=== PATIENT | female | born 1960 | race Caucasian/White ===

== ENCOUNTER 2019-05-11 20:52 | Emergency (ER) | payer SELFPAY ==
[2019-05-11 21:00] VITALS: BP 106/53; PULSE 70; RESP 18; TEMP 36.4; O2SAT 99; BMI 24.3
--- NOTE | 2019-05-11 21:00 | XR_ITS ---
WS: [id number] Left forearm, 2 views, 05/11/2019 Clinical Data: INJURY Comparison: None. Findings: There are impacted fractures of the distal left radius and ulna with dorsal displacement. There is a n ulnar styloid fracture. Carpal bones are intact. The shafts of the radius and ulna are unremarkable . The left elbow is normal. There is soft tissue swelling about the distal fracture site. XR/XR forearm LT 2V [id number] Impression: 1. Comminuted impacted fracture of distal left radius. 2. Fracture of the distal left ulna and ulnar styloid.
--- NOTE | 2019-05-11 21:00 | XR_ITS ---
WS: [id number] Left hand, 3 views, 05/11/2019 Clinical Data: INJURY Comparison: None. Findings: The fractures of the distal left radius and ulna are visible. The carpal bones are intact. The metaca rpals and phalanges show no fractures. The joint spaces are normal. No bone destruction or erosion is seen of the bones of the left hand. XR/XR hand LT min 3V* [id number] Impression: 1. Negative left hand. 2. Fractures of the distal left radius and ulna.
--- NOTE | 2019-05-11 21:00 | XR_ITS ---
WS: [id number] Left wrist, 3 views, 05/11/2019 Clinical Data: INJURY Comparison: None. Findings: There is a comminuted impacted fracture of the distal left radius. There is a fracture of the distal left ulna and of the ulnar styloid. The carpal bones are intact. There is soft tissue swelling about the fracture site with dorsal displacement of the fractures. XR/XR wrist LT min 3V* [id number] Impression: Fractures of the distal left radius and ulna.
[2019-05-11 21:45] VITALS: BP 93/62; PULSE 74; RESP 16; TEMP 36.8; O2SAT 99
--- NOTE | 2019-05-11 21:51 | ED_ITS ---
HPI - Extremity Problem General: Chief complaint: Extremity Injury, Upper Stated complaint: FALL, RT WRIST INJURY Time Seen by Provider: 05/11/19 21:46 Source: patient Mode of arrival: ambulatory Limitations: no limitations History of Present Illness: HPI Narrative: Patient was reaching up to check the light bulbs on some [place] lights she had hanging up in her living room. Patient reports slipping and falling off the stepstool and landing catching herself with her left outstretched arm. Patient has complaints of pain to the left wrist. Patient has normal range of motion of the elbow. Pulses and distal neurovascular is normal. Patient has a dinner fork deformity noted. Patient appears in mild pain. Review of Systems General: Reports: 10 or more systems reviewed and unremarkable except in HPI and below Musc: Reports: joint pain PFSH ED PFSH: Statuses (acute, chronic, etc) shown below reflect problem list status a s previously entered and may not be historically accurate Social History Smoking and tobacco status: current every day smoker Physical Exam Const: COMMON NORMALS: no apparent distress and oriented x3 GENERAL A PPEARANCE: cooperative HENMT: COMMON NORMALS: normocephalic, external ears normal, EAC's normal, TM's normal bilaterally and external nose normal HEAD & SCALP: normal to inspection and normocephalic FACE & SINUS: normal facial exam NOSE: external nose normal GENERAL EAR: hearing not grossly impaired EXTERNAL EAR: Yes external ears normal EXTERNAL AUDITORY CANAL: EAC's normal TYMPANIC MEMBRANE: TM's normal bilaterally MOUTH: oral and palatal mucosa normal THROAT: posterior oropharynx normal Eye: COMMON NORMALS: PERRL and EOMs intact bilaterally PUPIL: Yes PERRL Neck/C-Spine: COMMON NORMALS: full ROM and no lymphadenopathy Lymph: LYMPHATIC: no lymphedema noted Chest: COMMONS NORMALS: inspection of chest normal and palpation of chest normal Resp: COMMON NORMALS: normal respiratory effort and clear to auscultation bilaterally AUSCULTATION: clear to auscultation bilaterally Cardio: COMMON NORMALS: regular rate and regular rhythm RATE: regular rate RHYTHM: regular rhythm GI: COMMON NORMALS: normal to inspection, nondistended, normoactive bowel sounds and non-tender : COMMON NORMALS: Yes no CVA tenderness BLADDER/KIDNEY EXAM: Yes no CVA tenderness Back/Pelvis: COMMON NORMALS: no CVA tenderness and thoracic and lumbar spine normal to inspection Extremity: NARRATIVE EXTREMITY EXAM: Dinner fork deformity to the left wrist. Distal pulses and neurovascular is normal. GENERAL: Yes edema Neuro: COMMON NORMALS: oriented x3, moves all extremities and no focal motor deficits Psych: COMMON NORMALS: mental status grossly normal and cooperative Skin: COMMON NORMALS: no rashes or lesions noted GENERAL SKIN EXAM: no rashes or lesions noted Course ED course: 2199, reviewed with Dr. Aleman who agreed to splint and follow-up recommended discussion with Dr. Rodriguez to see if he would reduce, Dr. Rodriguez recommended we discuss with patient if she would want it reduce at this time. Patient was splinted before I could ask, reported improvement in pain and wanted to wait to see orthopedist. wjw Vital Signs: Vital signs: Vital Signs Temperature 98.3 F 05/11/19 22:18 Pulse Rate 68 05/11/19 22:18 Respiratory Rate 16 05/11/19 22:18 Blood Pressure 103/67 05/11/19 22:18 Pulse Oximetry 99 05/11/19 22:18 MDM - Extremity (Nontraumatic) MDM Narrative: Medical decision making narrative: Patient comes in with injury to the left wrist. On exam patient had a dinner fork abnormality to the left wrist. Neurovascular exam was normal. Differential diagnosis includes sprain, dislocation, fracture. X-ray noted a distal ulnar radial fracture with some mild dorsal angulation. Patient was placed in a splint with recommendations to follow-up with orthopedics. Patient reports understanding and will follow-up in the morning with orthopedics. Case management was requested for assistance with follow-up appointment. Discharge Plan Discharge Patient Disposition: Home, Self-Care Clinical Impression: Fracture of ulna with radius, closed Qualifiers: Encounter type: initial encounter Laterality: left Qualified Code(s): S52.92XA - Unspecified fracture of left forearm, initial encounter for closed fracture Condition: Stable Prescriptions: New hydrocodone-acetaminophen 5-325 mg tablet 1 tab PO Q6H PRN (Reason: pain) Qty: 14 RF: 0 Discharge Orders: Discharge Order (Routine); Ordered 05/11/19 Ordered By: Reggie Rivas Referrals: Todd Martinez, [Family Provider] - Discharge Diet: Advance as tolerated Discharge Activity: Increase activity as tolerated Patient Instructions: Wrist Fracture in Adults (ED) Activity Restrictions/Additional Instructions: Contact orthopedics office in morning for further treatment Case management will call you if you need further assistance Acetaminophen and ibuprofen may be used to help control pain Use hydrocodone for breakthrough pain Return to ER for worsening pain or new concerns Discharge Date/Time: 05/11/19 22:19 Coding Level of Care Code ED Executive Marketing Assistant for Grecia Mars Exam Problem Focused
[2019-05-11] MEDS: HYDROcodone-acetaminophen 7.5-325 mg Tablet 1 TAB PO (22:02)
[2019-05-11 22:18] VITALS: BP 103/67; PULSE 68; RESP 16; TEMP 36.8; O2SAT 99
--- NOTE | 2019-05-12 13:55 | DCPLANNER ---
manager digital had message to schedule a follow up appointment for patient with ortho. manager digital called ortho, spoke with Aleyda, gave clinic patients information. manager digital was told that a follow up appointment was scheduled for 05.12.19, and patient did attend the appointment.
== END 2019-05-11 22:19 | disposition home or self-care (01) ==
PROVIDERS: Emergency Provider Nurse Practitioner Family; Family Provider Electrodiagnostic Medicine
DX: S52.612A Displaced fracture of left ulna styloid process, initial encounter for closed fracture (principal); S52.592A Other fractures of lower end of left radius, initial encounter for closed fracture; W11.XXXA Fall on and from ladder, initial encounter; Y92.009 Unspecified place in unspecified non-institutional (private) residence as the place of occurrence of the external cause; F17.210 Nicotine dependence, cigarettes, uncomplicated
CPT/HCPCS: 73090; 73110; 73130; 99281

== ENCOUNTER 2019-05-12 11:31 | Day surgery (SDC) | payer SELFPAY ==
--- NOTE | 2019-05-12 | XR_ITS ---
WS: [id number] INTRAOPERATIVE TECHNIQUE: 3 Spot fluoroscopic images for intraoperative purposes. FLUOROSCOPY TIME: 144.3 seconds CLINICAL INFORMATION: OR PICS COMPARISON: None. FINDINGS: Plate and screw fixation distal radius. Comminuted distal ulna fracture with ulna styloid avulsion. XR/XR forearm LT 2V [id number] IMPRESSION: Images obtained for intraoperative purposes.
--- NOTE | 2019-05-12 | SCC_ITS ---
Procedure Done: Open reduction internal fixation left distal radius comminuted displaced fracture utilizing the [place] narrow extra short plate 144.3 seconds of fluoroscopic guidance, for a cumulative dose of 2.41 mGy, was provided to Dr. Aleman by the radiology department. C-arm images of the LEFT forearm were saved for the patient's permanent record. [facility]
[2019-05-12 12:15] VITALS: BMI 23.5
[2019-05-12 12:42] VITALS: BP 142/87; PULSE 95; RESP 18; TEMP 37.4; O2SAT 100
[2019-05-12] MEDS: midazolam 1 mg/mL INJ 2 mL 2 MG (13:15)
--- NOTE | 2019-05-12 13:44 | ANES.PREANES ---
Pre-Anesthetic Assessment Pre-Anesthetic Assessment: Height/Weight: Height 1.7 m Weight 68.039 kg Temp Pulse Resp BP Pulse Ox 99.3 F 95 18 142/87 100 05/12/19 12:42 05/12/19 12:42 05/12/19 12:42 05/12/19 12:42 05/12/19 12:42 Preop Diagnosis: Left comminuted intra-articular distal radius fracture Proposed Procedure: Operation Date: 05/12/19 12:20 Proposed Procedures p ORIF Wrist(Left) - Annelise Aleman MD Familial anesthetic complications: None Last intake: Intake > NPO Last Liquid Date 05/12/19 Last Liquid Time 07:00 Last Solid Date 05/10/19 Social: Social History: No alcohol and No tobacco Exam: Pre-Anes Outpt Exam: alert, oriented x 3, clear to auscultation bilaterally and regular rate & rhythm Airway: Cervical ROM: WNL MP: 2 Dentition: Full Pulmonary: Pulmonary: None reported CV/HEM: CV/HEM: None reported : : None reported Hepatic: Hepatic: None reported GI: GI: None reported Metabolic: Metabolic: None reported Musc/skel: Musc/skel: None reported Neuropsych: Neuropsych: None reported Anesthetic Plan: ASA status: II Anesthesia: General and Regional (specify below) (Axillary nerve block) PFSH Anesthesia PFSH: Social History Smoking and tobacco status: current every day smoker cigarettes Packs smoked per day: 1 Alcohol intake: current Alcohol intake frequency: holidays/special occasions only Data Anesthesia Cardiac Studies: No Data to Display
--- NOTE | 2019-05-12 13:45 | ANES.PROC ---
Anesthesia Procedures Procedure/Date: 05/12/19 Nerve Block ^: Nerve Block 1: Main Anesthesia: general anesthesia Time Out Performed: Yes Consent: requested by attending/covering physician, from patient, risks and benefits reviewed and patient agrees to proceed Nerve block location: axillary (L) Anesthesia monitors applied: pulse oximetry and oxygen Nerve block position: semi sitting Anesthetic Used: ropivicaine 0.5% and with decadron (4 mg) Amount of anesthesia used (mL): 30 Ultrasound used to: recognize landmarks Interscalene/Femoral BLK: 2 stimuplex 22 g needle used for position and inplane approach Injection: neg aspiration of heme and paresthesia +/- Patient Tolerated Procedure: well and no complications Complications: none
--- NOTE | 2019-05-12 13:48 | PM.HPUD ---
H&P update H&P Update: DATE OF SURGERY/PROCEDURE: 05/12/19 DATE H&P PERFORMED: 05/12/19 H&P UPDATE INFORMATION: No changes to prior documentation and H&P is in [facility] E[facility] on date indicated PREOP DIAGNOSIS: Comminuted left distal radius and ulnar fractures PLANNED PROCEDURE: Operation Date: 05/12/19 12:20 Proposed Procedures p ORIF Wrist(Left) - Annelise Aleman MD Full H&P Perinent History: Social History: Social History Smoking and tobacco status: current every day smoker cigarettes Packs smoked per day: 1 Alcohol intake: current Alcohol intake frequency: holidays/special occasions only
[2019-05-12] MEDS: ceFAZolin 1,000 mg SDV 1000 MG IRRIGATION (14:21)
[2019-05-12 15:35] VITALS: BP 145/77; PULSE 94; RESP 16; TEMP 36.9; O2SAT 97
[2019-05-12 15:40] VITALS: BP 147/92; PULSE 95; RESP 18; O2SAT 96
[2019-05-12 15:45] VITALS: BP 134/82; PULSE 91; RESP 16; TEMP 37.1; O2SAT 95
--- NOTE | 2019-05-12 15:49 | SUR.PHASEI ---
1545 PT HAS NO SENSATION/MOVEMENT TO L. FINGERS, CAP REFILL <3 SEC
--- NOTE | 2019-05-12 15:52 | P.OP_ITS ---
Operative Report Date of procedure: May 12, 2019 Pre-op Diagnosis: Comminuted left distal radius and ulnar fractures Post-op diagnosis: same Procedure Done: Open reduction internal fixation left distal radius comminuted displaced fracture utilizing the [place] narrow extra short plate Pathology: none sent Surgeon: Annelise Aleman Programmer Or Analyst: [facility] OR technicians Anesthesia: General (Intubated) Estimated blood loss (mL): 5 Tourniquet time (min): 55 IV fluids (mL): 500 Complications: None Condition: stable Disposition: same day Brief History: This 58-year-old woman was in her usual state of health when she fell from a stool in her home last evening. She was taking down some [employer] lights and fell directly onto her left wrist. She presented to the emergency department with a significantly comminuted, angulated, displaced distal radius fracture associated with a distal ulnar fracture. She was seen today and decision was made to proceed with surgery today. Risks and complications were discussed with the patient. Consents were signed preoperatively. Procedure: Patient was brought to the operating theater, and after undergoing adequate general anesthesia per endotracheal tube preceded by an axillary block in the preop holding area, the patient's left upper extremity was prepped and draped in usual fashion utilizing DuraPrep. The patient had a tourniquet placed high on the arm prior to prepping and draping. Following prepping and draping, the arm was exsanguinated and the tourniquet was elevated. Total tourniquet time was 55 minutes at 250 mmHg. Prior to commencement of the surgical procedure, a surgical pause was performed. At the time of the surgical pause, we confirmed the site and side of surgery as well as the patient's identity and preoperative surgical markings. We also confirmed availability of equipment and appropriate preoperative IV antibiotics which was Ancef 2g. Fluoroscopy was also brought into position so that we could visualize the fracture and hardware throughout the surgical procedure. The fracture was evaluated prior to tourniquet placement. Following elevation of the tourniquet as well as the surgical pause, an incision was made along the palmaris longus and continued down onto the volar surface of the radius. Care was taken to avoid injury throughout the surgical procedure to the median nerve as well as to the radial artery. The flexor carpi radialis was retracted medially. We were able to essentially elevate the sheath of the flexor carpi radialis and then I was able to place my finger directly onto the distal radius. For the most part, the patient did her own dissection at the time of her injury. Soft tissues were elevated off the distal radius to allow access to the fracture and also to the volar aspect of the distal radial shaft. Fluoroscopy was used to determine whether or not the reduction was appropriate. We were able to reduce the fracture with some difficulty due to the significant comminution and osteopenia. We then evaluated the plate and chose the extra short anatomic 2 hole narrow plate for the left distal radius. The plate was attached proximally and distally without difficulty. A combination of locking and nonlocking screws were utilized to attach the plate utilizing exclusively locking screws distally. We had excellent fixation and reduction of the fracture. Fluoroscopy was utilized during the procedure. Once the plate was fully attached, we had a near anatomic position to the distal radius and the distal radius was out to length. Being satisfied with position, the area was copiously irrigated. There were no fascial tissues to close, and therefore we closed the subcutaneous tissues with 2-0 interrupted Monocryl. We then placed a subcuticular 4-0 Monocryl suture which was running. This was followed by Ex ofin, Steri-Strips, Telfa and Tegaderm. A volar splint was wrapped into position over soft roll and this was wrapped in place with an Jaya wrap. The tourniquet was released after 55 minutes. There were no complications. There were no specimens. Patient was returned to recovery room in a satisfactory condition. She was subsequently discharged home with family. She will follow- up with me as scheduled in her discharge instructions.
[2019-05-12 15:57] VITALS: BP 146/87; PULSE 95; RESP 18; TEMP 36.6; O2SAT 95
[2019-05-12 16:20] VITALS: BP 138/82; PULSE 104; RESP 18; TEMP 36.6; O2SAT 96
== END 2019-05-12 16:25 | disposition home or self-care (01) ==
PROVIDERS: Family Provider Electrodiagnostic Medicine; PCP Electrodiagnostic Medicine; Visit Provider Specialist
PROC: (CPT 25609; principal; 2019-05-12 12:00)
DX: S52.502A Unspecified fracture of the lower end of left radius, initial encounter for closed fracture (principal); S52.252A Displaced comminuted fracture of shaft of ulna, left arm, initial encounter for closed fracture; W19.XXXA Unspecified fall, initial encounter; F17.210 Nicotine dependence, cigarettes, uncomplicated
CPT/HCPCS: 25609; 12345; 73090; 76000; C1713; J0131; J0690; J1100; J2250; J2704; J2795; J3010; J3490

== ENCOUNTER → 2019-05-25 09:38 | Outpatient (BNVA) | payer SELFPAY | PROVIDERS: Family Provider Electrodiagnostic Medicine; PCP Electrodiagnostic Medicine; Visit Provider Specialist | DX: Z48.89 Encounter for other specified surgical aftercare (principal); S52.501A Unspecified fracture of the lower end of right radius, initial encounter for closed fracture; X58.XXXA Exposure to other specified factors, initial encounter | CPT/HCPCS: 73110 ==

== ENCOUNTER 2019-05-25 11:25 | Outpatient (CLI) | payer SELFPAY | END 2019-05-25 11:26 | disposition home or self-care (01) | LOC: SPT 11:26 | PROVIDERS: Family Provider Electrodiagnostic Medicine; PCP Electrodiagnostic Medicine; Visit Provider Specialist | DX: S52.571D Other intraarticular fracture of lower end of right radius, subsequent encounter for closed fracture with routine healing (principal); X58.XXXD Exposure to other specified factors, subsequent encounter | CPT/HCPCS: L3982 ==

== ENCOUNTER → 2019-06-08 09:21 | Outpatient (BNVA) | payer SELFPAY | PROVIDERS: Family Provider Electrodiagnostic Medicine; PCP Electrodiagnostic Medicine; Visit Provider Specialist | DX: Z48.89 Encounter for other specified surgical aftercare (principal); S52.501A Unspecified fracture of the lower end of right radius, initial encounter for closed fracture; S52.601A Unspecified fracture of lower end of right ulna, initial encounter for closed fracture; X58.XXXA Exposure to other specified factors, initial encounter | CPT/HCPCS: 73110 ==

== ENCOUNTER → 2019-08-08 10:41 | Outpatient (BNVA) | payer SELFPAY | PROVIDERS: Family Provider Electrodiagnostic Medicine; PCP Electrodiagnostic Medicine; Visit Provider Specialist | DX: Z48.89 Encounter for other specified surgical aftercare (principal); S52.692D Other fracture of lower end of left ulna, subsequent encounter for closed fracture with routine healing; X58.XXXD Exposure to other specified factors, subsequent encounter | CPT/HCPCS: 73110 ==

== ENCOUNTER 2023-11-25 08:16 | Outpatient (CLI) | payer MEDICAID, SELFPAY ==
--- NOTE | 2023-11-25 08:30 | MM_ITS ---
WS: [id number] SCREENING DIGITAL BREAST TOMOSYNTHESIS MAMMOGRAM WITH CAD HISTORY: SCREENING COMPARISON: 04/11/2014 Bilateral CC and MLO with tomosynthesis and synthetic mammography submitted. Computer aided detection analyzed. Breast composition: The breasts are heterogeneously dense, which may obscure small masses. Subtle are a of mild distortion seen on the RIGHT cc in the lateral breast at a middle depth. No definite corres ponding finding on the lateral projection. Benign calcifications in the RIGHT breast also identified. No suspicious findings in the LEFT breast. MM/[place] [id number] IMPRESSION: BI-RADS: 0-Incomplete: Need additional imaging evaluation FOLLOW UP: Need Additional Imaging RIGHT breast: Spot compression views (CC and MLO). True ML. Ultrasound to follo w if abnormality persists.
== END 2023-11-25 08:17 | disposition home or self-care (01) ==
LOC: RAD 08:22
PROVIDERS: Family Provider Electrodiagnostic Medicine; PCP Electrodiagnostic Medicine; Visit Provider Family Medicine
DX: Z12.31 Encounter for screening mammogram for malignant neoplasm of breast (principal)
CPT/HCPCS: 77063; 77067

== ENCOUNTER 2024-01-11 08:33 | Outpatient (CLI) | payer MEDICAID, SELFPAY ==
--- NOTE | 2024-01-11 08:40 | MM_ITS ---
WS: [id number] ADDITIONAL VIEWS RIGHT MAMMOGRAM WITH DIGITAL BREAST TOMOSYNTHESIS. RIGHT BREAST ULTRASOUND HISTORY: R ABNORMAL MAMMOGRAM COMPARISON: 11/25/2023, 04/11/2014 RIGHT MAMMOGRAM: Spot compression views and true ML with digital breast tomosynthesis and SM. Breast composition: The breasts are heterogeneously dense, which may obscure small masses. Very slight asymmetry nearly completely resolves in the lateral RIGHT breast. Ultrasound will be perf ormed. There is no mass but there is some very slight tethering and distortion. Benign calcifications . RIGHT BREAST ULTRASOUND 2-D and color Doppler imaging submitted. No abnormalities noted within the RIGHT breast from 8-11 o'clock. There is no distortion or mass. MM/MM diag RT tomosynthesis [id number] IMPRESSION: BI-RADS: 2 - Benign FOLLOW UP: 1 Year Follow-up
== END 2024-01-11 08:34 | disposition home or self-care (01) ==
PROVIDERS: Family Provider Electrodiagnostic Medicine; PCP Nurse Practitioner Family; Visit Provider Family Medicine
DX: R92.8 Other abnormal and inconclusive findings on diagnostic imaging of breast (principal); R92.333 Mammographic heterogeneous density, bilateral breasts; R92.1 Mammographic calcification found on diagnostic imaging of breast
CPT/HCPCS: 76642; 77061; G0279